=== PATIENT | female | born 1990 | race Caucasian/White ===

== ENCOUNTER 2020-01-05 14:57 | Emergency (ER) | payer BC ==
[~2020-01-05] VITALS: Ht 167.6 cm; Wt 105.6 kg
--- NOTE | 2020-01-05 15:02 | NUR ---
NA X 1
--- NOTE | 2020-01-05 15:25 | NUR ---
First contact with pt. Chiquis REEVES at bedside to evaluate pt. Pt states that in May 2019 she missed her period but was not , since then had normal periods up until October when she started having heavy menstrual bleeding. Pt states going through one tampon per hour. Pt denies dizziness or lightheaddedness. Pt resting in bed, resp even and unlabored, NADN.
[2020-01-05 15:50] LABS: BASOPHILS # (AUTO) 0.03 x10^3/uL (0-0.1); BASOPHILS % (AUTO) 0 % (0-1); EOSINOPHILS # (AUTO) 0.22 x10^3/uL (0-0.4); EOSINOPHILS % (AUTO) 2 % (1-7); LYMPHOCYTES % (AUTO) 24 % (22-44); MD NO; MEAN CORPUSCULAR HEMOGLOBIN 31.9 pg (27.0-34.8); MEAN CORPUSCULAR HGB CONC 33.5 g/dL (32.4-35.8); MEAN CORPUSCULAR VOLUME 95.2 fL (80-100); MEAN PLATELET VOLUME 8.8 fL (7.4-10.4); MONOCYTES # (AUTO) 0.34 x10^3/uL (0.2-0.8); MONOCYTES % (AUTO) 4 % (2-9); NEUTROPHILS # (AUTO) 6.55 x10^3/uL (1.8-6.8); NEUTROPHILS % (AUTO) 70 % (42-75); PLATELET COUNT 236 x10^3/uL (130-400); RED BLOOD COUNT 4.37 x10^6/uL (3.82-5.3); RED CELL DISTRIBUTION WIDTH 13.1 % (9.6-15.2)
[2020-01-05 16:02] LABS: ALBUMIN 3.9 g/dL (3.4-5.0); ANION GAP 8 mmol/L (5-15); CALCIUM 8.9 mg/dL (8.5-10.1); CHLORIDE 109 mmol/L (98-107)
[2020-01-05 16:07] LABS: CREATININE 0.87 mg/dL (0.55-1.02)
--- NOTE | 2020-01-05 17:12 | NUR ---
Pt ambulatory to bathroom and back to bed with steady gait, NADN, denies needs.
[2020-01-05 18:29] VITALS: BP 111/67
== END 2020-01-05 18:31 | disposition home or self-care (01) ==
LOC: ED 18:20
DX: N93.8 Other specified abnormal uterine and vaginal bleeding (principal)
CPT/HCPCS: 36415; 76830; 80048; 82040; 84703; 85025; 99284